=== PATIENT | male | born 1995 | race Caucasian/White ===

== ENCOUNTER 2021-12-01 14:26 | Emergency (ER) | payer OTHER ==
[~2021-12-01] VITALS: Ht 167.6 cm; Wt 78.0 kg
--- NOTE | 2021-12-01 14:36 | NUR ---
BIBS C/O MID-CHEST SHARPNESS, BODY ACHES AND SOB SINCE YESTERDAY. AMBULATORY, PLACED ON BED, AAOX4.
--- NOTE | 2021-12-01 14:37 | NUR ---
ATTACHED TO MONITOR- SINUS RHYTHYM DE-80
[2021-12-01] MEDS ORDERED: IBUPROFEN 600 MG TABLET PO ONE (15:00)
[2021-12-01] MEDS ORDERED: ACETAMINOPHEN ES 500 MG TABLET PO ONE (15:00)
[2021-12-01] MEDS ORDERED: IV NS 0.9% 1,000 ML BAG IV ONE (15:00)
--- NOTE | 2021-12-01 15:35 | NUR ---
BLOOD DRAWN AND DENT TO LAB
[2021-12-01] MEDS ORDERED: IBUPROFEN 600 MG TABLET ONE (15:38)
[2021-12-01] MEDS ORDERED: ACETAMINOPHEN ES 500 MG TABLET ONE (15:38)
[2021-12-01 15:45] LABS: BASOPHILS % (AUTO) 0.5 % (0.0-2.0); EOSINOPHILS % (AUTO) 2.5 % (0.0-6.0); HEMATOCRIT 39 % (39-51); HEMOGLOBIN 13.5 g/dL (13.5-17.5); LYMPHOCYTES # (AUTO) 1.3 K/uL (0.8-4.8); LYMPHOCYTES % (AUTO) 19.9 % (20.0-44.0); MEAN CORPUSCULAR HGB CONC 35 g/dl (31.0-36.0); MEAN CORPUSCULAR VOLUME 85 fL (80-96); MONOCYTES # (AUTO) 0.4 K/uL (0.1-1.30); MONOCYTES % (AUTO) 6.8 % (2.0-12.0); NEUTROPHILS # (AUTO) 4.6 K/uL (1.8-8.9); NEUTROPHILS % (AUTO) 70.3 % (43.0-81.0); PLATELET COUNT (AUTO) 262 K/uL (150-450); RED BLOOD CELL COUNT(AUTO) 4.62 MIL/uL (4.5-6.0); WHITE BLOOD COUNT (AUTO) 6.5 K/uL (4.3-11.0)
[2021-12-01 16:08] LABS: CARBON DIOXIDE 31 mmol/L (21-32); CHLORIDE 100 mmol/L (98-107); D-DIMER < 0.19 mg/L(FEU (0.17-0.50); GLUCOSE 77 mg/dL (74-106); POTASSIUM 4.1 mmol/L (3.5-5.1); SODIUM SERUM 135 mmol/L (136-145); UREA NITROGEN, BLOOD 5 mg/dL (7-18)
[2021-12-01 16:15] LABS: ALANINE AMINOTRANSFERASE 28 U/L (12-78); ALBUMIN 4.1 g/dL (3.4-5.0); ALKALINE PHOSPHATASE 86 U/L (46-116); ASPARTATE AMINOTRANSFERASE 14 U/L (15-37); BILIRUBIN,DIRECT 0.1 mg/dL (0.0-0.2); BILIRUBIN,TOTAL 0.5 mg/dL (0.2-1.0); TOTAL PROTEIN, SERUM 7.1 g/dL (6.4-8.2)
--- NOTE | 2021-12-01 16:24 | NUR ---
SWAB FOR COVID19, RAPID INFLUENZA ANTIGEN A+B SENT TO LAB
[2021-12-01] MEDS ORDERED: IBUP-1957 PO (18:16)
[2021-12-01 18:49] VITALS: BP 126/68
--- NOTE | 2021-12-01 18:49 | NUR ---
IV removed. Catheter intact and site benign. Pressure and 4x4 applied to site. No bleeding noted.Patient discharged to home in stable condition. Written and verbal after care instructions given. Patient verbalizes understanding of instruction.
== END 2021-12-01 18:49 | disposition home or self-care (01) ==
LOC: ER 14:31
DX: R07.81 Pleurodynia (principal); Z20.822 Contact with and (suspected) exposure to COVID-19; J45.909 Unspecified asthma, uncomplicated; M79.10 Myalgia, unspecified site
CPT/HCPCS: 99285; 96360; 71045; 87426; 93005 ×2; 87804; 85025; 80048; 87040 ×2; 83605 ×2; 80076; 85378; 85652; 36415; 84484 ×2; 85730; 83880; 86140; J7030; C9803